=== PATIENT | female | born 1940 | race Caucasian/White ===

== ENCOUNTER 2016-12-27 09:50 | Outpatient (CLI) | payer MEDICARE, OTHER ==
--- NOTE | 2016-12-27 20:11 | RAD ---
CHEST TWO VIEWS 12/27/16 Comparison is made with a 11/27/16 study. The left base is much clearer today than before and there is less streaking. No new infiltrates or e ffusions were seen. The cardiac size is stable. There is no congestive change. Scoliosis is noted as usual. IMPRESSION: Left basilar pneumonia cleared. POS: HOME
== END 2016-12-27 09:51 | disposition home or self-care (01) ==
LOC: BURRAD 09:50
PROVIDERS: ATTEND Family Medicine
DX: J18.9 Pneumonia, unspecified organism (principal)
CPT/HCPCS: 71020

== ENCOUNTER 2017-02-18 10:57 | Outpatient (CLI) | payer MEDICARE, OTHER ==
[2017-02-18 12:06] LABS: ALT (SGPT) 19 U/L (0-55); AST (SGOT) 36 U/L (5-34); Albumin 4.1 g/dL (3.4-4.8); Alkaline Phosphatase 77 U/L (40-150); Anion Gap 13 mmol/L (10-20); BUN (Urea Nitrogen) 19 mg/dL (9.8-20.1); Bilirubin, Total 0.2 mg/dL (0.2-1.2); Calc. Creatinine Clearance 0 mL/min (70-130); Calcium 9.5 mg/dL (7.8-10.44); Carbon Dioxide 27 mmol/L (23-31); Cardiac Risk 2.8 (Less than 4.5); Chloride 103 mmol/L (98-107); Cholesterol 149 mg/dL (< 200 Desired); Dilantin 10.4 ug/mL (10.0-20.0); Estimated GFR-MDRD 65; Globulin 3.4 g/dL (2.4-3.5); Glucose 71 mg/dL (83-110); HDL Cholesterol 54 mg/dL (>60 Neg Risk); LDL Cholesterol, Calculated 66 mg/dL; Potassium 3.8 mmol/L (3.5-5.1); Protein, Total 7.5 g/dL (5.8-8.1); Sodium 139 mmol/L (136-145); Triglycerides 147 mg/dL (Less than 150)
[2017-02-18 12:57] LABS: Eosinophils 1 % (0-10); Lymphocytes 27 % (21-51); MDiff Complete? YES; Mean Corpuscular HGB CONC 33.9 g/dL (32.0-36.0); Mean Corpuscular Hemoglobin 31.1 pg (27.0-31.0); Mean Corpuscular Volume 91.7 fl (81.0-99.0); Mean Platelet Volume 6.7 fL (7.4-10.4); Monocytes 17 % (0-10); Neutrophil 55 % (42-75); Platelet Count 251 thou/uL (130-400); RBC Distribution Width 12.5 % (11.5-14.5); Red Blood Cell (RBC) Count 4.52 mill/uL (4.20-5.40); White Blood Cell (WBC) Count 8.2 thou/uL (4.8-10.8)
== END 2017-02-18 10:58 ==
LOC: HPCALD 10:57
PROVIDERS: ATTEND Family Medicine
DX: Z51.81 Encounter for therapeutic drug level monitoring (principal); I10 Essential (primary) hypertension
CPT/HCPCS: 36415; 80053; 80061; 80185; 84443; 85025

== ENCOUNTER 2017-12-12 11:17 | Outpatient (CLI) | payer MEDICARE, OTHER ==
--- NOTE | 2017-12-12 13:04 | RAD ---
CERVICAL SPINE THREE VIEWS: Date: 12-12-17 FINDINGS: Curvature of the spine is present convex left. Disc space narrowing is present at C4-5 and C5-6. Ther e is slight anterolisthesis of C3 on C4. Degenerative changes are present in the spine, mostly at C4 and below, which consists of osteophytes. No fracture, dislocation or soft tissue swelling was seen. The C1-2 dens distance was normal. Carotid calcifications are very apparent on the right side. The varinder ng apices are included on the study. There is diffuse vascular and interstitial prominence. While not optimal, I would wonder about either some baseline fibrosis or congestive change. IMPRESSION: 1. Multilevel degenerative disc disease, particularly at C4 and below. No acute findings. 2. Scoliosis. 3. See comments above regarding the upper chest, as well as it can be noted there is dense arterial s clerosis in the aorta. POS: [facility]
== END 2017-12-12 11:18 | disposition home or self-care (01) ==
LOC: BURRAD 11:17
PROVIDERS: ATTEND Family Medicine
DX: M54.2 Cervicalgia (principal); M50.31 Other cervical disc degeneration, high cervical region; M41.9 Scoliosis, unspecified; I35.8 Other nonrheumatic aortic valve disorders
CPT/HCPCS: 72040

== ENCOUNTER 2019-10-24 09:01 | Emergency (ER) | payer MEDICARE, OTHER ==
[2019-10-24 10:04] LABS: Bilirubin Negative (Negative); Blood, Urine Trace (Negative); Clarity Clear (Clear); Glucose, Urine (Dipstick) Negative (Negative); Leukocyte Negative (Negative); Nitrite Negative (Negative); Protein, Urine (Dipstick) Negative (Neg-Trace); Urobilinogen 0.2 mg/dL (Less than 2)
[2019-10-24 10:06] LABS: Bacteria/HPF Rare-Few HPF (None Seen); RBC/HPF 0-3 HPF (0-3); Squamous Epithelial 0-3 HPF (0-3); WBC/HPF 0-3 HPF (0-3)
--- NOTE | 2019-10-24 10:21 | CT ---
CT CERVICAL SPINE WITHOUT CONTRAST: 10/24/2019 TECHNIQUE: A spiral CT of the cervical spine was done following trauma. Axial slices were acquired followed by c oronal and sagittal reconstructions. FINDINGS: There is rotoscoliosis of the spine, which makes some areas a bit more difficult to sell well. No fracture, dislocation, or acute bony change is seen. Spinal alignment is normal. C1 to dens distan ce is normal. Soft tissues are normal in thickness. Findings by level follow: C1-C2: No acute findings. C2-C3: There appears to be a central bulge of the disk. No acute changes. are noted. C3-C4: Prominent posterior osteophytes with severe right foraminal narrowing and right facet arthriti s. C4-C5: Moderate bilateral foraminal narrowing, perhaps moderate to severe on the left. C5-C6: Moderate right foraminal narrowing and mild left foraminal narrowing due to osteophytes. C6-C7: Mild to moderate bilateral foraminal narrowing. C7-T1: No acute findings. T1-T2: No acute findings. T2-T3: No acute findings. The lung apices are clear but have chronic interstitial changes in them. There is a little increase i n adenopathy throughout the neck bilaterally but this is a nonspecific finding. IMPRESSION: Severe degenerative changes as noted but no acute traumatic findings. POS: HOME
--- NOTE | 2019-10-24 10:27 | CT ---
CT BRAIN WITHOUT CONTRAST: 10/24/2019 HISTORY/TECHNIQUE: The noncontrast CT was done following trauma. COMPARISON: 03/06/2008 FINDINGS: There is some mild generalized atrophy. 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 The ventric les are normal in size, given the degree of atrophy present. No major intracranial bleeding is seen. There is a large scalp hematoma in the high left frontal fiorella on. Immediately beneath the inner table of the skull here there is a very small, punctate, high densi ty area that is well contained that seems more likely a calcification than actual blood. It is not in the parenchyma itself but does not have the typical shape of epidural blood. I really feel it is mos t likely a calcification associated with the meninges, however since it is immediately beneath the si te of injury, I note it to be complete. IMPRESSION: 1. No definite acute intracranial bleeding. Tiny punctate, calcific area immediately beneath the area of external trauma that is probably long-standing though not visible on the prior study. My leanings are very strongly that this is not acute blood, however, in view of the location, one should have a low threshold to re-scan if there is any neurological change. 2. 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 The appearance suggests encephalomalacia from an infarct that occurred in between then and now. 3. Otherwise there is mild atrophy and mild chronic ischemic change throughout. Findings discussed with Dr. Noble at 0947 hours. CODE CR POS: HOME
== END 2019-10-24 10:32 | disposition home or self-care (01) ==
LOC: BURERS 09:01
DX: S00.83XA Contusion of other part of head, initial encounter (principal); I10 Essential (primary) hypertension; Z86.73 Personal history of transient ischemic attack (TIA), and cerebral infarction without residual deficits; Z79.899 Other long term (current) drug therapy; Z79.82 Long term (current) use of aspirin; W18.30XA Fall on same level, unspecified, initial encounter
CPT/HCPCS: 70450; 72125; 81003; 81015; 94760; L0120

== ENCOUNTER 2020-10-23 07:16 | Emergency (ER) | payer MEDICARE, OTHER ==
[2020-10-23] MEDS ORDERED: Morphine 4 MG/ML VIAL ONE (07:50)
[2020-10-23 07:55] LABS: Bilirubin Negative (Negative); Blood, Urine Small (Negative); Glucose, Urine (Dipstick) Negative (Negative); Ketone, Urine Negative (Negative); Leukocyte Negative (Negative); Nitrite Negative (Negative); Protein, Urine (Dipstick) Negative (Neg-Trace); Urobilinogen 0.2 mg/dL (Less than 2)
[2020-10-23 07:56] LABS: Clarity Hazy (Clear)
[2020-10-23 07:58] LABS: Bacteria/HPF 2+ HPF (None Seen); RBC/HPF 0-3 HPF (0-3); Squamous Epithelial 0-3 HPF (0-3); WBC/HPF 0-3 HPF (0-3)
[2020-10-23 08:08] LABS: Hemoglobin 13.5 g/dL (12.0-16.0); Mean Corpuscular Volume 90.9 fL (78.0-98.0); Mean Platelet Volume 9.3 fL (7.4-10.4); Platelet Count 215 thou/uL (130-400); RBC Distribution Width 12.3 % (11.5-14.5); White Blood Cell (WBC) Count 12.2 thou/uL (4.8-10.8)
[2020-10-23 08:22] LABS: ALT (SGPT) 14 U/L (8-55); AST (SGOT) 30 U/L (5-34); Albumin 4.4 g/dL (3.4-4.8); Alkaline Phosphatase 72 U/L (40-110); Anion Gap 18 mmol/L (10-20); BUN (Urea Nitrogen) 31 mg/dL (9.8-20.1); Bilirubin, Total 0.4 mg/dL (0.2-1.2); Calc. Creatinine Clearance 0 mL/min (70-130); Calcium 8.9 mg/dL (7.8-10.44); Carbon Dioxide 28 mmol/L (23-31); Chloride 94 mmol/L (98-107); Estimated GFR-MDRD 49; Globulin 3.5 g/dL (2.4-3.5); Glucose 107 mg/dL (83-110); Lipase 57 U/L (8-78); Potassium 3.4 mmol/L (3.5-5.1); Protein, Total 7.9 g/dL (6.0-8.3); Sodium 137 mmol/L (136-145)
[2020-10-23 08:26] LABS: Band 5 % (5-11); Eosinophils 1 % (0-10); Lymphocytes 6 % (21-51); MDiff Complete? YES; Monocytes 20 % (0-10); Neutrophil 67 % (42-75); Reactive Lymphocytes 1 % (0-10)
[2020-10-23] MEDS ORDERED: Cyclobenzaprine 10 MG TAB ONE (09:11)
--- NOTE | 2020-10-23 09:22 | CT ---
CT ABDOMEN AND PELVIS WITHOUT CONTRAST: DATE: 10/23/2020. FINDINGS: A noncontrast CT was done for right lower quadrant and back pain. There are no prior scans to compar e with. There is some minor streaking in the lung bases that is probably a combination of atelectasis or scar ring. No major lobar infiltrates or effusions were seen. The liver, spleen, pancreas, adrenal gland s, kidneys, and abdominal aorta showed no acute findings. There is no evidence of renal calculi or u reteral calculi. There is no obstruction. The patient's gallbladder is generous in size, being near ly 10 cm in length, but does not appear thickened, nor is there is there any streaking around it. Th ere are some faint calcifications within it that are presumably gallstones. No gallstones were prese nt in this patient on a 2006 ultrasound. The aorta is densely calcified, but there is no aneurysm. There is a large amount of stool in the right colon and cecum. The appendix is identified and appear s normal. There is no bowel wall thickening or inflammatory change around the bowel. No free air or free fluid was present. CT of the pelvis shows the urinary bladder is rather distended, but no other pelvic abnormalities wer e seen. Rare diverticula were seen in the distal colon, but there was no sign of diverticulitis or o ther inflammatory change. No pelvic masses were present. The patient has prominent scoliosis. There has been a prior fusion in the low lumbar area. There ar e extensive degenerative changes throughout. IMPRESSION: 1. A large amount of stool in the right colon, but no evidence of obstruction or inflammatory change in or around the bowel. 2. Appendix appears normal. 3. Gallbladder generous in size (nearly 10 cm) and some gallstones are present. 4. Distended urinary bladder. 5. Scoliosis with degenerative changes of the spine and old lumbar fusion. Preliminary report called to Dr. Bernard at 0854 on 10/23/2020. CODE CR POS: HOME
== END 2020-10-23 09:33 | disposition home or self-care (01) ==
LOC: BURERS 07:16
DX: M54.5 Low back pain (principal); I10 Essential (primary) hypertension; Z86.73 Personal history of transient ischemic attack (TIA), and cerebral infarction without residual deficits; Z79.82 Long term (current) use of aspirin; Z79.899 Other long term (current) drug therapy
CPT/HCPCS: 51701; 74176; 80053; 81003; 81015; 83605; 83690; 84484; 85025; 96374; J2270

== ENCOUNTER 2022-01-15 09:31 | Outpatient (CLI) | payer MEDICARE, OTHER | END 2022-01-15 09:32 | disposition home or self-care (01) | LOC: BURRAD 09:31 | PROVIDERS: ATTEND Family Medicine | DX: M79.671 Pain in right foot (principal); M79.89 Other specified soft tissue disorders ==

== ENCOUNTER 2022-03-23 18:01 | Emergency (ER) | payer MEDICARE, OTHER ==
[2022-03-23] MEDS ORDERED: Sodium Bicarb 50 MEQ/50 ML Abboject 8.4% SYRINGE IVP ONE (18:02)
[2022-03-23] MEDS ORDERED: EPINEPHrine 1 MG/10 ML Abboject SYRINGE IVP ONE (18:02)
[2022-03-23] MEDS ORDERED: EPINEPHrine 1 MG/ML VIAL ONE (18:22)
[2022-03-23] MEDS ORDERED: Ketamine 50 MG/ML (10ML VIAL) ONE (18:29)
[2022-03-23 18:32] LABS: Hemoglobin 14.9 g/dL (12.0-16.0); Mean Corpuscular HGB CONC 31.9 g/dL (32.0-36.0); Mean Corpuscular Hemoglobin 30.7 pg (27.0-31.0); Mean Corpuscular Volume 96.3 fL (78.0-98.0); Mean Platelet Volume 9.4 fL (7.4-10.4); Platelet Count 198 thou/uL (130-400); RBC Distribution Width 13.9 % (11.5-14.5); Red Blood Cell (RBC) Count 4.85 mill/uL (4.20-5.40); White Blood Cell (WBC) Count 18.4 thou/uL (4.8-10.8)
[2022-03-23 18:49] LABS: ALT (SGPT) 127 U/L (8-55); Alkaline Phosphatase 84 U/L (40-110); Anion Gap 25 mmol/L (10-20); BUN (Urea Nitrogen) 27 mg/dL (9.8-20.1); Bilirubin, Total 0.2 mg/dL (0.2-1.2); Calc. Creatinine Clearance 0 mL/min (70-130); Calcium 9.1 mg/dL (7.8-10.44); Carbon Dioxide 12 mmol/L (23-31); Chloride 107 mmol/L (98-107); Globulin 4.1 g/dL (2.4-3.5); Glucose 197 mg/dL (83-110); Potassium 4.7 mmol/L (3.5-5.1); Protein, Total 8.1 g/dL (5.8-8.1); Sodium 139 mmol/L (136-145)
[2022-03-23 18:53] LABS: MDiff Complete? YES
[2022-03-23 18:54] LABS: Band 7 % (5-11); Eosinophils 3 % (0-10); Lymphocytes 14 % (21-51); Monocytes 30 % (0-10); Myelocyte 1 % (0-0); Neutrophil 35 % (42-75); Reactive Lymphocytes 7 % (0-10)
[2022-03-23 19:17] LABS: AST (SGOT) 144 U/L (5-34)
== END 2022-03-23 19:20 | disposition short-term general hospital (02) ==
LOC: BURERS 18:01
DX: R09.2 Respiratory arrest (principal); E87.2 Acidosis; I10 Essential (primary) hypertension; Z86.73 Personal history of transient ischemic attack (TIA), and cerebral infarction without residual deficits; Z79.82 Long term (current) use of aspirin; Z79.899 Other long term (current) drug therapy
CPT/HCPCS: 36415; 36416; 71045; 80053; 83880; 84484; 85025; 93005; 94760; 96374; 96375; J0171